=== PATIENT | female | born 1980 | race Caucasian/White ===

== ENCOUNTER 2017-07-04 14:31 | Emergency (ER) | payer BC ==
--- NOTE | 2017-07-04 14:52 | EDM.PDOC ---
ED HPI GENERAL MEDICAL PROBLEM - General Chief Complaint: General Stated Complaint: ER Time Seen by Provider: 07/04/17 14:47 Source of Information: Reports: Patient, RN History Limitations: Reports: No Limitations - History of Present Illness INITIAL COMMENTS - FREE TEXT/NARRATIVE: Pt arrived via gurney from clinic with c/o near syncope. Per Clinic staff, pt had just received an injection for toradol and a steroid and began having diaphoresis and feeling faint. Per pt, after the injection she became hot and felt numb and tingling all over. States she was being treated for muscle spasms. States that she is feeling better now and not sure why she had that type of reaction as she has had this combination of medication in the past. Onset: Today, Sudden Duration: Constant Location: Reports: Generalized Quality: Reports: Ache Severity: Moderate Improves with: Reports: None Worsens with: Reports: None Associated Symptoms: Reports: No Other Symptoms Sacral Pain Score (Numeric/FACES): 7 - Related Data Allergies Allergy/AdvReac Type Severity Reaction Status Date / Time Sulfa (Sulfonamide Allergy Unknown Anaphylactic Verified 07/04/17 14:35 Antibiotics) Shock Home Meds: Home Meds Levothyroxine 175 mcg PO DAILY #30 tablet 01/07/15 [Rx] Past Medical History - Past Health History Medical/Surgical History: Denies Medical/Surgical History HEENT History: Reports: Impaired Vision Cardiovascular History: Reports: Stents Gastrointestinal History: Reports: GERD Genitourinary History: Reports: Other (See Below) Other Genitourinary History: left sided abscessed kidney Other OB/BYN History: 4 births, 4 Endocrine/Metabolic History: Reports: Hypothyroidism Social & Family History - Family History Family Medical History: Noncontributory - Tobacco Use Smoking Status *Q: Current Every Day Smoker Years of Tobacco use: 20 Packs/Tins Daily: 0.5 Used Tobacco, but Quit: Yes Month Tobacco Last Used: 07/2014 Second Hand Smoke Exposure: Yes - Caffeine Use Caffeine Use: Reports: Coffee - Alcohol Use Days Per Week of Alcohol Use: 0 - Recreational Drug Use Recreational Drug Use: No Drug Use in Last 12 Months: No ED ROS GENERAL - Review of Systems Review Of Systems: See Below Musculoskeletal: Reports: Muscle Pain Neurological: Reports: Tingling ED EXAM, GENERAL - Physical Exam Exam: See Below Exam Limited By: No Limitations General Appearance: Alert, WD/WN, No Apparent Distress Eye Exam: Bilateral Eye: PERRL Head: Atraumatic, Normocephalic Neck: Normal Inspection, Supple, Non-Tender, Full Range of Motion Respiratory/Chest: No Respiratory Distress, Lungs Clear, Normal Breath Sounds, No Accessory Muscle Use, Chest Non-Tender Cardiovascular: Normal Peripheral Pulses, Regular Rate, Rhythm, No Edema, No Gallop, No JVD, No Murmur, No Rub Extremities: Normal Inspection, Normal Range of Motion, Non-Tender, Normal Capillary Refill, No Pedal Edema Neurological: Alert, Oriented, CN II-XII Intact, Normal Cognition, Normal Gait, Normal Reflexes, No Motor/Sensory Deficits Skin Exam: Warm, Dry, Intact, No Rash, Pallor Course - Vital Signs Last Recorded V/S: Last Vital Signs Temp 97.3 F 07/04/17 14:35 Pulse 46 L 07/04/17 15:43 Resp 16 07/04/17 15:43 BP 96/53 L 07/04/17 15:43 Pulse Ox 98 07/04/17 15:43 - Orders/Labs/Meds Orders: Active Orders 24 hr Category Date Time Status HCG QUALITATIVE,URINE [URCHEM] Stat Lab 07/04/17 14:47 Uncollected UA W/MICROSCOPIC [URIN] Stat Lab 07/04/17 14:46 Uncollected Labs: Laboratory Tests 07/04/17 07/04/17 Range/Units 15:00 15:00 WBC 6.7 (5.0-10.0) 10^3/uL RBC 4.43 (4.2-5.4) 10^6/uL Hgb 13.3 (12.0-16.0) g/dL Hct 40.8 (37.0-47.0) % MCV 92.1 (80-100) fL MCH 30.0 (27.0-34.0) pg MCHC 32.6 L (33.0-35.0) g/dL Plt Count 181 (150-450) 10^3/uL Neut % (Auto) 44.3 (42.2-75.2) % Lymph % (Auto) 41.4 (20.5-50.1) % [place] % (Auto) 7.8 (2-8) % Eos % (Auto) 5.0 H (1.0-3.0) % Baso % (Auto) 1.5 H (0.0-1.0) % Sodium 139 (135-145) mmol/L Potassium 4.0 (3.6-5.0) mmol/L Chloride 104 (101-111) mmol/L Carbon Dioxide 22.0 (21.0-31.0) mmol/L Anion Gap 17.0 BUN 13 (7-18) mg/dL Creatinine 0.9 (0.6-1.3) mg/dL Est Cr Clr Drug Dosing TNP Estimated GFR (MDRD) > 60 Glucose 95 (74-105) mg/dL Calcium 8.8 (8.4-10.2) mg/dl - Re-Assessments/Exams Free Text/Narrative Re-Assessment/Exam: 07/04/17 15:45 Labs normal. Feels better and will dc home Departure - Departure Time of Disposition: 15:46 Disposition: Home, Self-Care 01 Condition: Good Clinical Impression: Vasovagal near-syncope - Discharge Information Instructions: Near-Syncope Forms: ED Department Discharge Additional Instructions: Take the flexeril as needed and take medrol dose pack as directed. Follow up with your PCP as needed. return for worsening symptoms. - My Orders Last 24 Hours: My Active Orders 07/04/17 14:46 UA W/MICROSCOPIC [URIN] Stat 07/04/17 14:47 HCG QUALITATIVE,URINE [URCHEM] Stat - Assessment/Plan Last 24 Hours: My Active Orders 07/04/17 14:46 UA W/MICROSCOPIC [URIN] Stat 07/04/17 14:47 HCG QUALITATIVE,URINE [URCHEM] Stat
[2017-07-04 15:39] LABS: CHLORIDE,CL 104 mmol/L (101-111); SODIUM,NA 139 mmol/L (135-145)
[2017-07-04 15:44] VITALS: BP 96/53
== END 2017-07-04 16:02 | disposition home or self-care (01) ==
LOC: DL.ED 14:31
DX: R55 Syncope and collapse (principal); K21.9 Gastro-esophageal reflux disease without esophagitis; E03.9 Hypothyroidism, unspecified; F17.210 Nicotine dependence, cigarettes, uncomplicated; Z79.899 Other long term (current) drug therapy; Z88.2 Allergy status to sulfonamides
CPT/HCPCS: 36415; 80048; 85025; 99283

== ENCOUNTER 2019-03-01 15:11 | Emergency (ER) | payer BC ==
[2019-03-01] MEDS ORDERED: Ondansetron 4 MG Tab.DIS PO ONE (15:12)
[2019-03-01] MEDS ORDERED: Sodium Chloride 0.9% 10 ML Syringe FLUSH PRN (15:26)
[2019-03-01] MEDS ORDERED: Ondansetron 4 MG/2 ML SDV IV ONE (15:27)
[2019-03-01] MEDS ORDERED: Sodium Chloride 0.9% 1,000 ML IV ONE ×2 (15:27→17:11)
[2019-03-01 15:53] VITALS: BP 115/75
[2019-03-01 16:14] LABS: ANION GAP 16.7; CHLORIDE,CL 104 mmol/L (101-111); SODIUM,NA 137 mmol/L (135-145)
--- NOTE | 2019-03-01 18:16 | EDM.PDOC ---
Scribed by Mary Dewey 03/01/19 [id number] for Telma De La Cruz NP ED HPI GENERAL MEDICAL PROBLEM - General Chief Complaint: Gastrointestinal Problem Stated Complaint: THROWING UP FOR ABOUT 6 HOURS Time Seen by Provider: 03/01/19 15:30 Source of Information: Reports: Patient, RN, RN Notes Reviewed - History of Present Illness INITIAL COMMENTS - FREE TEXT/NARRATIVE: Patient presents to ER with complaint of vomiting since 8 a.m. Patient states the vomiting has been persistent and she is unable to keep anything down. Patient admits to chills and diarrhea. She denies chest pain, shortness of breath and unsure about fever. States she does have her gallbladder and appendix. She admits to having "drinks" last night. Onset: Today Duration: Constant Location: Reports: Abdomen Quality: Reports: Other (vomiting) Severity: Moderate Improves with: Reports: None Worsens with: Reports: None Associated Symptoms: Reports: No Other Symptoms - Related Data Allergies Allergy/AdvReac Type Severity Reaction Status Date / Time Sulfa (Sulfonamide Allergy Unknown Anaphylactic Verified 03/01/19 15:53 Antibiotics) Shock Home Meds: Home Meds Aspirin 81 mg PO DAILY 03/01/19 [History] Levothyroxine Sodium [Synthroid] 125 mg PO DAILY 03/01/19 [History] Sertraline [Zoloft] 25 mg PO DAILY 03/01/19 [History] atorvaSTATin [Lipitor] 40 mg PO DAILY 03/01/19 [History] Past Medical History - Past Health History Medical/Surgical History: Denies Medical/Surgical History HEENT History: Reports: Impaired Vision Cardiovascular History: Reports: Stents Gastrointestinal History: Reports: GERD Genitourinary History: Reports: Other (See Below) Other Genitourinary History: left sided abscessed kidney Other OUTSOLE SPLICER History: 4 births, 4 Endocrine/Metabolic History: Reports: Hypothyroidism Social & Family History - Family History Family Medical History: Noncontributory - Caffeine Use Caffeine Use: Reports: Coffee ED ROS GENERAL - Review of Systems Review Of Systems: ROS reveals no pertinent complaints other than HPI. ED EXAM, GI/ABD - Physical Exam Exam: See Below Exam Limited By: No Limitations General Appearance: Moderate Distress Eyes: Bilateral: Normal Appearance Ears: Normal External Exam, Normal Canal, Hearing Grossly Normal, Normal TMs Nose: Normal Inspection, Normal Mucosa, No Blood Throat/Mouth: Normal Inspection, Normal Lips, Normal Teeth, Normal Gums, Normal Oropharynx, Normal Voice, No Airway Compromise Head: Atraumatic, Normocephalic Neck: Normal Inspection, Supple, Non-Tender, Full Range of Motion Respiratory/Chest: No Respiratory Distress, Lungs Clear, Normal Breath Sounds, No Accessory Muscle Use, Chest Non-Tender Cardiovascular: Normal Peripheral Pulses, No Edema, No Gallop, No JVD, No Murmur , No Rub, Bradycardia, Irregularly Irregular GI/Abdominal Exam: Normal Bowel Sounds, Soft, No Organomegaly, No Distention, No Abnormal Bruit, No Mass, Pelvis Stable, Tender (right and left upper quadrants) (Female) Exam: Deferred Rectal (Female) Exam: Deferred Back Exam: Normal Inspection, Full Range of Motion Extremities: Normal Inspection, Normal Range of Motion, Non-Tender, Normal Capillary Refill, No Pedal Edema Neurological: Alert, Oriented, CN II-XII Intact, Normal Cognition, Normal Gait, Normal Reflexes, No Motor/Sensory Deficits Psychiatric: Flat Affect Skin Exam: Other (pale) Lymphatic: No Adenopathy Course - Vital Signs Last Recorded V/S: Last Vital Signs Temp 97 F 03/01/19 15:18 Pulse 88 03/01/19 15:18 Resp 20 03/01/19 15:18 BP 115/75 03/01/19 15:18 Pulse Ox 100 03/01/19 15:18 - Orders/Labs/Meds Orders: Active Orders 24 hr Category Date Time Status EKG Documentation Completion [RC] STAT Care 03/01/19 15:26 Active Peripheral IV Care [RC] . DIRECTED Care 03/01/19 15:27 Active CULTURE BLOOD [BC] Stat Lab 03/01/19 17:00 Results Sodium Chloride 0.9% [Normal Saline] 1,000 ml Med 03/01/19 17:11 Active IV .BOLUS Sodium Chloride 0.9% [Saline Flush] Med 03/01/19 15:26 Active 10 ml FLUSH ASDIRECTED PRN Blood Culture x2 Reflex Set [OM.PC] Stat Oth 03/01/19 16:45 Ordered Peripheral IV Insertion Adult [OM.PC] Stat Oth 03/01/19 15:26 Ordered Medication Orders Sodium Chloride (Normal Saline) 1,000 mls @ 999 mls/hr IV .BOLUS ONE Stop: 03/01/19 18:11 Last Admin: 03/01/19 17:25 Dose: 999 mls/hr Sodium Chloride (Saline Flush) 10 ml FLUSH ASDIRECTED PRN PRN Reason: Keep Vein Open Last Admin: 03/01/19 15:32 Dose: 10 ml Labs: Laboratory Tests 03/01/19 03/01/19 03/01/19 Range/Units 15:47 15:47 17:00 WBC 14.3 H (5.0-10.0) 10^3/uL RBC 4.86 (4.2-5.4) 10^6/uL Hgb 15.2 D (12.0-16.0) g/dL Hct 44.1 (37.0-47.0) % MCV 90.7 (80-100) fL MCH 31.3 (27.0-34.0) pg MCHC 34.5 (33.0-35.0) g/dL Plt Count 214 (150-450) 10^3/uL Neut % (Auto) 86.6 H (42.2-75.2) % Lymph % (Auto) 7.6 L (20.5-50.1) % [place] % (Auto) 5.4 (2-8) % Eos % (Auto) 0.1 L (1.0-3.0) % Baso % (Auto) 0.3 (0.0-1.0) % Sodium 137 (135-145) mmol/L Potassium 3.7 (3.6-5.0) mmol/L Chloride 104 (101-111) mmol/L Carbon Dioxide 20.0 L (21.0-31.0) mmol/L Anion Gap 16.7 BUN 11 (7-18) mg/dL Creatinine 0.6 (0.6-1.3) mg/dL Est Cr Clr Drug Dosing 119.99 mL/min Estimated GFR (MDRD) > 60 BUN/Creatinine Ratio 18.33 Glucose 122 H (74-105) mg/dL Lactic Acid 2.2 (0.5-2.2) mmol/L Calcium 9.0 (8.4-10.2) mg/dl Total Bilirubin 1.2 H (0.2-1.0) mg/dL AST 28 (10-42) IU/L ALT 13 (10-60) IU/L Alkaline Phosphatase 39 L (42-121) IU/L Troponin I < 0.02 (0.00-0.02) ng/ml Total Protein 7.9 (6.7-8.2) g/dl Albumin 4.8 (3.2-5.5) g/dl Globulin 3.1 Albumin/Globulin Ratio 1.55 Amylase 29 (28-100) U/L Lipase 20 L (22-51) U/L Urine Color (YELLOW) Urine Appearance (CLEAR) Urine pH (5.0-9.0) Ur Specific [place] (1.005-1.030) Urine Protein (NEGATIVE) Urine Glucose (UA) (NEGATIVE) Urine Ketones (NEGATIVE) Urine Occult Blood (NEGATIVE) Urine Nitrite (NEGATIVE) Urine Bilirubin (NEGATIVE) Urine Urobilinogen (0.2-1.0) mg/dL Ur Leukocyte Esterase (NEGATIVE) Urine RBC /HPF Urine WBC (0-5/HPF) /HPF Ur Epithelial Cells /HPF Amorphous Sediment (0/HPF) /HPF Urine Bacteria (0-FEW/HPF) /HPF Urine Mucus /LPF Urine HCG, Qual 03/01/19 03/01/19 Range/Units 17:40 17:40 WBC (5.0-10.0) 10^3/uL RBC (4.2-5.4) 10^6/uL Hgb (12.0-16.0) g/dL Hct (37.0-47.0) % MCV (80-100) fL MCH (27.0-34.0) pg MCHC (33.0-35.0) g/dL Plt Count (150-450) 10^3/uL Neut % (Auto) (42.2-75.2) % Lymph % (Auto) (20.5-50.1) % [place] % (Auto) (2-8) % Eos % (Auto) (1.0-3.0) % Baso % (Auto) (0.0-1.0) % Sodium (135-145) mmol/L Potassium (3.6-5.0) mmol/L Chloride (101-111) mmol/L Carbon Dioxide (21.0-31.0) mmol/L Anion Gap BUN (7-18) mg/dL Creatinine (0.6-1.3) mg/dL Est Cr Clr Drug Dosing mL/min Estimated GFR (MDRD) BUN/Creatinine Ratio Glucose (74-105) mg/dL Lactic Acid (0.5-2.2) mmol/L Calcium (8.4-10.2) mg/dl Total Bilirubin (0.2-1.0) mg/dL AST (10-42) IU/L ALT (10-60) IU/L Alkaline Phosphatase (42-121) IU/L Troponin I (0.00-0.02) ng/ml Total Protein (6.7-8.2) g/dl Albumin (3.2-5.5) g/dl Globulin Albumin/Globulin Ratio Amylase (28-100) U/L Lipase (22-51) U/L Urine Color Dark yellow (YELLOW) Urine Appearance Slightly cloudy (CLEAR) Urine pH 7.0 (5.0-9.0) Ur Specific [place] 1.025 (1.005-1.030) Urine Protein 100 H (NEGATIVE) Urine Glucose (UA) Negative (NEGATIVE) Urine Ketones >=160 H (NEGATIVE) Urine Occult Blood Small H (NEGATIVE) Urine Nitrite Negative (NEGATIVE) Urine Bilirubin Negative (NEGATIVE) Urine Urobilinogen 0.2 (0.2-1.0) mg/dL Ur Leukocyte Esterase Negative (NEGATIVE) Urine RBC 10-20 H /HPF Urine WBC 0-5 (0-5/HPF) /HPF Ur Epithelial Cells Few /HPF Amorphous Sediment Few (0/HPF) /HPF Urine Bacteria Occasional (0-FEW/HPF) /HPF Urine Mucus Few H /LPF Urine HCG, Qual Negative Meds: Medications Generic Name Dose Route Start Last Admin Trade Name Freq PRN Reason Stop Dose Admin Sodium Chloride 1,000 mls @ 999 mls/hr 03/01/19 17:11 03/01/19 17:25 Normal Saline IV 03/01/19 18:11 999 mls/hr .BOLUS ONE Administration Sodium Chloride 10 ml 03/01/19 15:26 03/01/19 15:32 Saline Flush FLUSH 10 ml ASDIRECTED PRN Administration Keep Vein Open Discontinued Medications Generic Name Dose Route Start Last Admin Trade Name Freq PRN Reason Stop Dose Admin Sodium Chloride 1,000 mls @ 999 mls/hr 03/01/19 15:27 03/01/19 15:36 Normal Saline IV 03/01/19 16:27 999 mls/hr .BOLUS ONE Administration Ondansetron HCl 4 mg 03/01/19 15:27 03/01/19 15:37 Zofran IV 03/01/19 15:28 4 mg ONETIME ONE Administration Departure - Departure Time of Disposition: 17:59 Disposition: Home, Self-Care 01 Condition: Fair Clinical Impression: Gastroenteritis - Discharge Information *PRESCRIPTION DRUG MONITORING PROGRAM REVIEWED*: No *COPY OF PRESCRIPTION DRUG MONITORING REPORT IN PATIENT DONNY: No Instructions: Dehydration, Adult, [id number], Viral Gastroenteritis, Adult, [id number], Diarrhea, Adult, [id number]-cy-[id number], Nausea and Vomiting, Adult, Easy-to -Read, Food Poisoning, [id number] Forms: ED Department Discharge Additional Instructions: RX: Zofran Sips of fluids frequently as tolerated Return to the ER with any further problems Follow up with your primary care facility - My Orders Last 24 Hours: My Active Orders 03/01/19 15:26 EKG Documentation Completion [RC] STAT Sodium Chloride 0.9% [Saline Flush] 10 ml FLUSH ASDIRECTED PRN Peripheral IV Insertion Adult [OM.PC] Stat 03/01/19 15:27 Peripheral IV Care [RC] . DIRECTED 03/01/19 16:45 Blood Culture x2 Reflex Set [OM.PC] Stat 03/01/19 17:00 CULTURE BLOOD [BC] Stat 03/01/19 17:11 Sodium Chloride 0.9% [Normal Saline] 1,000 ml IV .BOLUS - Assessment/Plan Last 24 Hours: My Active Orders 03/01/19 15:26 EKG Documentation Completion [RC] STAT Sodium Chloride 0.9% [Saline Flush] 10 ml FLUSH ASDIRECTED PRN Peripheral IV Insertion Adult [OM.PC] Stat 03/01/19 15:27 Peripheral IV Care [RC] . DIRECTED 03/01/19 16:45 Blood Culture x2 Reflex Set [OM.PC] Stat 03/01/19 17:00 CULTURE BLOOD [BC] Stat 03/01/19 17:11 Sodium Chloride 0.9% [Normal Saline] 1,000 ml IV .BOLUS I have read and agree with the documentation that has been completed regarding this visit. By signing this record, I attest that the documentation was completed in my physical presence and is an accurate record of the encounter.
[2019-03-01] MEDS ORDERED: Ondansetron 4 MG Tab.DIS ONE (18:26)
== END 2019-03-01 18:34 | disposition home or self-care (01) ==
LOC: DL.ED 15:11
DX: K52.9 Noninfective gastroenteritis and colitis, unspecified (principal); E03.9 Hypothyroidism, unspecified; Z88.2 Allergy status to sulfonamides; Z79.82 Long term (current) use of aspirin; Z79.899 Other long term (current) drug therapy
CPT/HCPCS: 36415; 80053; 81001; 81025; 82150; 83605; 83690; 84484; 85025; 87040; 93005; 96361; 96374; 99284; A9270; J2405; J7030

== ENCOUNTER 2022-08-04 21:55 | Emergency (ER) | payer BC ==
[2022-08-04 22:09] VITALS: BP 135/73; PULSE 68
[2022-08-04] MEDS ORDERED: Sodium Chloride 0.9% 10 ML Syringe FLUSH PRN (22:12)
[2022-08-04] MEDS ORDERED: Aspirin 81 MG Tab.Chew PO ONE ×2 (22:23→22:24)
[2022-08-04] MEDS ORDERED: Ondansetron 4 MG/2 ML SDV IVPUSH ONE (22:47)
[2022-08-04] MEDS ORDERED: Morphine 2 MG/ML SYRINGE IVPUSH ONE (22:47)
[2022-08-04] MEDS ORDERED: Ketorolac 30 MG/ML SDV IVPUSH ONE (22:58)
[2022-08-04 23:04] LABS: ANION GAP 11.5 mEq/L (7-13); CHLORIDE,CL 102 mmol/L (98-107); SODIUM,NA 138 mmol/L (136-145)
[2022-08-04 23:05] LABS: ESTIMATED GFR 92 mL/min (>=60)
[2022-08-04] MEDS ORDERED: GI Cocktail Oral Solution 30 ML PO ONE (23:21)
== END 2022-08-05 01:03 | disposition home or self-care (01) ==
LOC: DL.ED 21:55
DX: R07.2 Precordial pain (principal); E03.9 Hypothyroidism, unspecified; I25.2 Old myocardial infarction; Z79.899 Other long term (current) drug therapy; Z88.2 Allergy status to sulfonamides; Z88.5 Allergy status to narcotic agent; Z88.8 Allergy status to other drugs, medicaments and biological substances
CPT/HCPCS: 36415; 80053; 83605; 83690; 83735; 84443; 84484; 85025; 85379; 86140; 93005; 99285; A9270; J3490